=== PATIENT | female | born 1955 | race Caucasian/White ===

== ENCOUNTER 2024-08-21 06:22 | Emergency (ER) | payer OTHER ==
[~2024-08-21] VITALS: Ht 182.9 cm; Wt 86.2 kg
[~2024-08-21 06:22] MED LIST: METO50ER PO; Prinivil10 MG PO; XARELTO20 MG PO
[2024-08-21] MEDS ORDERED: Ipratropium/Albuterol SulF 2.5-0.5MG/3 ML Amp INH ONE (07:35)
[2024-08-21] MEDS ORDERED: Albuterol 2.5 MG/3 ML VIAL INH SCH ×2 (08:55→10:40)
[2024-08-21] MEDS ORDERED: PredniSONE 20 MG Tab PO ONE (08:55)
[2024-08-21] MEDS ORDERED: Azithromycin 250 MG Tab PO ONE (10:40)
[2024-08-21] MEDS ORDERED: AZIT250 PO (10:42)
[2024-08-21] MEDS ORDERED: ALBU90OI INH (10:42)
[2024-08-21] MEDS ORDERED: PRED20 PO (10:42)
[2024-08-22] MEDS ORDERED: PRED20 PO (09:31)
== END 2024-08-21 12:12 | disposition home or self-care (01) ==
LOC: ER 06:22
DX: J18.9 Pneumonia, unspecified organism (principal); J20.9 Acute bronchitis, unspecified; I48.91 Unspecified atrial fibrillation; I10 Essential (primary) hypertension; Z79.01 Long term (current) use of anticoagulants; Z79.899 Other long term (current) drug therapy
CPT/HCPCS: 71046; 94640; 94644; 94664; 99283-25; A9270; J7512

== ENCOUNTER 2024-10-02 10:08 | Emergency (ER) | payer OTHER ==
[~2024-10-02] VITALS: Ht 182.9 cm; Wt 86.2 kg
[~2024-10-02 10:08] MED LIST changes: +ALBU90OI INH; +AZIT250 PO; +PRED20 PO
== END 2024-10-02 13:00 | disposition home or self-care (01) ==
LOC: ER 10:08
DX: S91.201A Unspecified open wound of right great toe with damage to nail, initial encounter (principal); W22.8XXA Striking against or struck by other objects, initial encounter; I48.91 Unspecified atrial fibrillation; I10 Essential (primary) hypertension; Z79.899 Other long term (current) drug therapy; Z79.01 Long term (current) use of anticoagulants
CPT/HCPCS: 90715